=== PATIENT | female | born 1955 | race Caucasian/White ===

== ENCOUNTER 2017-10-23 12:30 | Inpatient (IN) | END 2017-10-25 13:02 | disposition home or self-care (01) | DRG 501 ==

== ENCOUNTER 2019-01-16 06:35 | Day surgery (SDC) | payer OTHER ==
[~2019-01-16] VITALS: Ht 160 cm; Wt 103.4 kg
[~2019-01-16 06:35] MED LIST: AMLO5TAB4 PO; ASPI-817 PO; BENA20TA4 PO; HYDR25TA6 PO; METF-849 PO; vit D PO
[2019-01-16] MEDS ORDERED: AMLO-145 PO (07:31)
[2019-01-16 07:35] VITALS: Ht 160 cm; Wt 103.4 kg
[2019-01-16 08:04] VITALS: BP 152/84; PULSE 89; RESP 18
--- NOTE | 2019-01-16 08:57 | PREAC ---
Date/Time of Note Date/Time of Note DATE: 01/16/19 TIME: 08:56 Anesthesia Eval and Record Evaluation Time Pre-Procedure Interview DATE: 01/16/19 TIME: 08:56 Age 63 Sex female NPO: 8 hrs Preoperative diagnosis abdominal pain, screening Planned procedure EGD, colonoscopy Past Medical History Past Medical History: Includes Cardio: HTN Endo: Diabetes GI: Morbid obesity Surgery & Anesthesia Issues No known issue Meds Anticoagulation: No Beta Lyndsey within 24 hr: No Reason Beta Lyndsey not given: Pt. not on B-Lyndsey Active Scripts Hydrochlorothiazide* (Hydrochlorothiazide*) 25 Mg Tab, 25 MG PO DAILY, #30 TAB Prov:ENRIQUE ANDRADE V. 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 Reported Medications Amlodipine Besylate* (Amlodipine Besylate*) 5 Mg Tablet, 5 MG PO DAILY, #30 TAB 01/16/19 Benazepril Hcl* (Benazepril Hcl*) 20 Mg Tablet, 20 MG PO DAILY, #30 TAB 10/23/17 Aspirin* (Aspirin* EC) 81 Mg Tablet.dr, 81 MG PO DAILY, TAB 10/23/17 Metformin* (Glucophage*) 500 Mg Tab, 500 MG PO WITH BREAKFAST, #30 TAB 10/23/17 Discontinued Reported Medications Amlodipine Besylate* (Norvasc*) 5 Mg Tablet, 5 MG PO DAILY, TAB 10/23/17 [vit D] No Conflict Check, 2000 MCG PO DAILY 10/23/17 Meds reviewed: Yes Allergies Coded Allergies: No Known Allergy (Unverified , 10/20/17) Allergies Reviewed: Yes Labs/Studies Labs Reviewed: Reviewed by anesthesiologist test: N/A Pre-procedure Exam Last vitals Vital Signs Date Temp Pulse Resp B/P (MAP) Pulse Ox O2 O2 Flow FiO2 Time Delivery Rate 01/16/19 98.5 89 18 152/84 98 Room Air 08:04 (106) Airway: Adequate mouth opening, Adequate thyromental dist Mallampati: Mallampati II Teeth: Normal Lung: Normal Heart: Normal ASA Physical Status ASA physical status: 3 Emergency: None Planned Anesthetic General/MAC: Mask Planned Pain Management Parenteral pain med Pre-operative Attestations Prior to commencing anesthesia and surgery, the patient was re-evaluated, there was verification of: *The patient's identity *The results of appropriate recent lab work and preoperative vital signs *The above evaluation not changing prior to induction *Anesthetic plan, risk benefits, alternative and complications discussed with patient/family; questions answered; patient/family understands, accepts and wishes to proceed. Napkin Band Wrapper used ELBERT EAGLE MD Jan 16, 2019 08:57
[2019-01-16] MEDS ORDERED: LIDOCAINE 2% (SDV) 5 ML INJ ONE (08:58)
[2019-01-16] MEDS ORDERED: PROPOFOL 60 ML ONE (08:58)
--- NOTE | 2019-01-16 09:41 | PAC ---
Date/Time of Note Date/Time of Note DATE: 01/16/19 TIME: 09:40 Post-Anesthesia Notes Post-Anesthesia Note Last documented vital signs Vital Signs Date Temp Pulse Resp B/P (MAP) Pulse Ox O2 O2 Flow FiO2 Time Delivery Rate 01/16/19 98.5 89 18 152/84 98 Room Air 08:04 (106) Activity: WNL Respiratory function: WNL Cardiovascular function: WNL Mental status: Baseline Pain reasonably controlled: Yes Hydration appropriate: Yes Nausea/Vomiting absent: Yes Comments BP: 129/72 HR: 74 RR: 16 T: 98 saO2: 97% ELBERT EAGLE MD Jan 16, 2019 09:41
[2019-01-16 09:55] VITALS: BP 125/68; PULSE 83; RESP 24
[2019-01-16] MEDS ORDERED: ONDANSETRON 4 MG INJ IV PRN (10:00)
== END 2019-01-16 11:52 | disposition home or self-care (01) ==
LOC: GIL 06:35
PROVIDERS: ATTEND Internal Medicine Gastroenterology
DX: Z12.11 Encounter for screening for malignant neoplasm of colon (principal); K64.8 Other hemorrhoids; K25.7 Chronic gastric ulcer without hemorrhage or perforation; E11.9 Type 2 diabetes mellitus without complications; I10 Essential (primary) hypertension; Z79.82 Long term (current) use of aspirin; Z79.84 Long term (current) use of oral hypoglycemic drugs
CPT/HCPCS: 43239; 45378; 82962; 88305; 88312; Z7610